=== PATIENT | male | born 2000 | race African-American/Black ===

== ENCOUNTER 2021-12-27 13:43 | Emergency (ER) | payer OTHER ==
[2021-12-27 14:28] VITALS: BP 130/83
== END 2021-12-27 15:03 | disposition left against medical advice (07) ==
LOC: ED 13:43
DX: M79.602 Pain in left arm (principal); Z53.29 Procedure and treatment not carried out because of patient's decision for other reasons

== ENCOUNTER 2023-05-20 08:00 | Outpatient (CLI) | payer OTHER | END 2023-05-20 23:59 | disposition home or self-care (01) | LOC: LAB.N 08:00 | PROVIDERS: ATTEND Physician Assistant Medical | DX: J06.9 Acute upper respiratory infection, unspecified (principal) | CPT/HCPCS: 87070 ==